=== PATIENT | male | born 1950 | race Caucasian/White ===

== ENCOUNTER 2024-02-09 11:51 | Emergency (ER) | payer MEDICARE, OTHER, SELFPAY ==
[2024-02-09 11:53] VITALS: BP 119/72; BMI 20.1
[2024-02-09 12:02] LABS: Glucose - Point of Care 63 mg/dl (70-99)
--- NOTE | 2024-02-09 12:09 | ED.GENMED ---
History of Present Illness
General
Chief Complaint: Heart Rate Problem
Source: patient and ambulance crew
Exam Limitations: none
Time Seen by Provider: 02/09/24 11:59
Nursing documentation reviewed up to this point in time: agreed with
Travel History
Have you had any contact with someone who has COVID-19?: No
Do you have any symptoms of coronavirus? Fever > 100 degrees, chills, cough, shortness of breath, sore throat, loss of taste or smell, muscle aches, or headache?: No
History of Present Illness
History of Present Illness:
73-year-old male patient of cardiology [facility] on Coreg lisinopril presents with a syncopal event was at the [facility], standing felt dizzy went to the ground EMS was called he was confused heart rate in the 40s blood pressure in the 80s given atropine and
fluids now is feeling better Accu-Chek years 61 states he felt well in the morning when he woke up and went to work, does not appear to be diabetic EMS states patient did not hit his head he was helped down to the ground
Past History
Past History
ED Past Medical History: COPD and Other (Pneumonia 2012, July 2016.)
ED Past Surgical History: Orthopedic
Social History
Tobacco: Smoker
Alcohol: Occasional
Drug: None
Personal:
Living: with family
Employment: Employed (teacher)
Family History
Family History: Other (Noncontributory)
Review of Systems
Review of Systems
All Other Systems: Not applicable
Constitutional: Denies fever or fatigue
Respiratory: Reports no symptoms
Cardiac: Reports syncope; Denies chest pain or diaphoresis
ABD/GI: Reports no symptoms
: Reports no symptoms
Phy Exam
Physical Exam
Physical Exam:
Physical Exam
General: no apparent distress, not acutely ill
Neck: No tongue bite
Heart: s1/s2 regular rate and rhythm, no murmur. equal radial pulses.
Lungs: no acute respiratory distress. clear bilaterally
Abdomen: Nontender
Neuro: alert and oriented. no focal neurological deficits
Skin: no rash
Psychiatric: well kept. interactive and cooperative
Extremities: no edema.
Course
Orders/Labs/Results
Orders:
Orders
02/09/24 11:53
Electrocardiogram (*1) Urgent
Reason for Study: Chest Pain
Cardiac Monitoring- Treatment ONCE
EKG- Treatment ONCE
IV Insert/Care/Rem.- Treatment PRN
O2 Therapy [RESP] Urgent
Titrate/Wean O2 to maintain O2 sat greater than (%): 90
Special Instructions: Maintain sats >/=90%
Pulse Ox/spot Check [RESP] Urgent
Quantity: 1
Special Instructions: ON ROOM AIR
02/09/24 11:56
Complete Blood Count/With Diff Urgent
Comprehensive Metabolic Panel Urgent
Troponin I Urgent
Abnormal Lab Results
02/09/24 02/09/24
11:56 11:57
RBC 4.03 L 10^6/uL
(4.70-6.10)
Hgb 12.6 L g/dL
(13.0-18.0)
Hct 38.4 L %
(39.0-52.0)
MCV 95.3 H fL
(80.0-94.0)
MCH 31.3 H pg
(27.0-31.0)
MCHC 32.8 L g/dL
(33.0-37.0)
Absolute Monos (auto) 0.7 H 10^3/uL
(0.1-0.6)
Eosinophils % 7.0 H %
(0-6)
Sodium 133 L mmol/L
(135-145)
BUN 26 H mg/dl
(9-20)
Glucose 104 H mg/dl
(70-99)
POC Glucose 63 L mg/dl
(70-99)
02/09/24 11:56
02/09/24 11:56
Vital Signs
Initial and Last Documented VS:
Initial Vital Signs
Pulse Resp BP Pulse Ox
68 16 119/72 96
02/09/24 11:53 02/09/24 11:53 02/09/24 11:53 02/09/24 11:53
Last Documented Vital Signs
Pulse Resp BP Pulse Ox
58 13 117/58 100
02/09/24 12:31 02/09/24 12:31 02/09/24 12:31 02/09/24 12:31
MDM/Problems Addressed
Differential Diagnosis Includes:
Vasovagal arrhythmia overmedication hypoglycemia electrolyte abnormality
MDM/Problems Addressed:
Syncope
Chronic conditions affecting care: HTN
Acute Exacerbation and/or Progression of Chronic Illness: HTN
*Critical Care Note
Total Time (30-74mins, 75-104mins- exclusive of procedures): Not Applicable
Update Note
Update Note:
2 PM, patient has been monitored here no recurrence of his symptoms blood pressure is normalized heart rate in the 50s patient tells me he was on max dose of lisinopril in the [facility] increased his Coreg few weeks back, also only had
a bowl of cereal with some coffee this morning
I believe he can safely be discharged, will decrease his Coreg and follow-up with cardiology PCP Dr. Bermeo return to the ER for worsening symptoms
ED Attending Note
-
Portions of this chart may have been created with voice recognition software.� Occasional wrong word or��sound alike� substitutions may have occurred due to the inherent limitations of voice recognition software.
Discharge Plan
Departure
Patient Disposition: Home (Routine Discharge)
Date of Disposition: 02/09/24
Time of Disposition: 13:56
Patient with high blood pressure during this ER visit?: No
Condition: Good
Covid-19: Not Applicable
Discharge Problem:
Syncope and collapse
Prescriptions:
No Action
atorvastatin 20 MG tablet
20 mg PO DAILY
aspirin 81 MG tablet,delayed release (DR/EC)
81 mg PO DAILY
carvedilol [Coreg] 3.125 MG tablet
6.25 mg PO BID
betamethasone, augmented 15 GM ointment
15 gm TP DAILYPRN PRN (Reason: leg rash)
lisinopril 20 mg tablet
20 mg PO BID
Referrals:
Michael Bermeo MD [Family Provider] - Next open appointment
Iglesia Ingram MD [Active] - Next open appointment
Activity Restrictions/Additional Instructions:
Rest, drink plenty of fluids, eat frequent meals, follow-up with your family doctor and server support technician
As we discussed, decrease your carvedilol dose to your prior dose 1 pill twice a day
Return to the ER if recurrent symptoms
Interventions
Interventions:
*Risk Screen - Suicide Last Done: 02/09/24 11:53
*General Assessment Last Done: 02/09/24 11:53
*Neglect/Abuse Screening Last Done: 02/09/24 11:53
ED- Fall Risk Assessment Last Done: 02/09/24 12:02
*ED COVID-19 Vaccine History Last Done: 02/09/24 11:53
ED- Cardiac Assessment Last Done: 02/09/24 12:02
ED- Pulmonary Assessment Last Done: 02/09/24 12:02
Discharge Date and Time
Print Language: AMHARIC
[2024-02-09 12:20] LABS: % Basophils 0.9 % (0-2); % Immature Granulocytes 0.3 % (0-0.5); % Lymphocytes 24.3 % (20.5-51.1); % Monocytes 7.6 % (1.7-9.3); % Neutrophils 59.9 % (42.2-75.2); Absolute Basophils 0.1 10^3/uL (0-0.2); Absolute Eosinophils 0.6 10^3/uL (0-0.7); Absolute Lymphocytes 2.2 10^3/uL (1.2-3.4); Absolute Monocytes 0.7 10^3/uL (0.1-0.6); Absolute Neutrophils 5.4 10^3/uL (1.4-6.5); Hematocrit 38.4 % (39.0-52.0); Hemoglobin 12.6 g/dL (13.0-18.0); Mean Corp Hgb Conc. 32.8 g/dL (33.0-37.0); Mean Corpuscular Hgb 31.3 pg (27.0-31.0); Mean Corpuscular Volume 95.3 fL (80.0-94.0); Mean Platelet Volume 9.5 fL (7.4-10.4); Nucleated Red Blood Cells % 0 % (-); Platelet Count 250 10^3/uL (130-400); Red Blood Cell Count 4.03 10^6/uL (4.70-6.10); Red Cell Dist. Width 12.4 % (11.5-14.5)
[2024-02-09 12:31] VITALS: BP 117/58
[2024-02-09 12:38] LABS: ALT (SGPT) 16 U/L (0-50); AST (SGOT) 21 U/L (17-59); Alkaline Phosphatase 90 U/L (38-126); Blood Urea Nitrogen 26 mg/dl (9-20); Calcium 9.1 mg/dl (8.4-10.2); Carbon Dioxide 25 mmol/L (22-30); Chloride 104 mmol/L (98-107); Estimated Creatinine Clearance 49 ml/min; Glucose 104 mg/dl (70-99); Potassium 4.6 mmol/L (3.5-5.1); Sodium 133 mmol/L (135-145); Total Protein 6.8 g/dl (6.3-8.2); eGFR > 60.00
[2024-02-09 12:41] LABS: Troponin I < 0.012 ng/ml
[2024-02-09 13:00] VITALS: BP 111/57
[2024-02-09 13:30] VITALS: BP 113/56
[2024-02-09 14:00] VITALS: BP 117/60
== END 2024-02-09 14:28 | disposition home or self-care (01) ==
LOC: EMR 11:51
PROVIDERS: Emergency Medicine; EMERGENCY PHYSICIAN Emergency Medicine; FAMILY PHYSICIAN Family Medicine
DX: R55 Syncope and collapse (principal); R42 Dizziness and giddiness; R41.0 Disorientation, unspecified; I10 Essential (primary) hypertension; F17.200 Nicotine dependence, unspecified, uncomplicated
CPT/HCPCS: 99284; 80053; 82962; 84484; 85025; 93005

== ENCOUNTER → 2024-03-05 11:03 | Outpatient (REF) | payer MEDICARE, OTHER, SELFPAY | LOC: DHCBC/DCA 11:03 | PROVIDERS: ATTENDING PHYSICIAN Nurse Practitioner; FAMILY PHYSICIAN Family Medicine | DX: I25.10 Atherosclerotic heart disease of native coronary artery without angina pectoris (principal); R73.03 Prediabetes; E78.5 Hyperlipidemia, unspecified; R55 Syncope and collapse | CPT/HCPCS: 78452; 93017; A9500 ==

== ENCOUNTER → 2024-04-03 07:06 | Outpatient (REF) | payer MEDICARE, OTHER, SELFPAY | LOC: HWRCS 07:06 | PROVIDERS: ATTENDING PHYSICIAN Internal Medicine Cardiovascular Disease; FAMILY PHYSICIAN Family Medicine | DX: I25.10 Atherosclerotic heart disease of native coronary artery without angina pectoris (principal) | CPT/HCPCS: 93306 ==

== ENCOUNTER → 2025-03-20 13:23 | Outpatient (REF) | payer MEDICARE, OTHER, SELFPAY | LOC: RAD 13:23 | PROVIDERS: ATTENDING PHYSICIAN Family Medicine; FAMILY PHYSICIAN Family Medicine | DX: N50.89 Other specified disorders of the male genital organs (principal) | CPT/HCPCS: 76870; 93976 ==